=== PATIENT | female | born 1940 | race Caucasian/White ===

== ENCOUNTER → 2017-02-02 16:40 | Outpatient (CLI) | payer MEDICARE ==
[2013-07-14 07:43] VITALS: BMI 27.8
[~2017-02-02 16:40] MED LIST: MULTIPLE VITAMI1 TA1 PO; ZOCOR20 MG PO
== END | disposition home or self-care (01) ==
LOC: D.MAMMO 10:00
DX: Z85.3 Personal history of malignant neoplasm of breast (principal)

== ENCOUNTER → 2017-02-12 07:30 | Outpatient (CLI) | payer MEDICARE ==
[2013-07-14 07:43] VITALS: BMI 27.8
== END | disposition home or self-care (01) ==
LOC: D.US 07:30
DX: R92.8 Other abnormal and inconclusive findings on diagnostic imaging of breast (principal)

== ENCOUNTER 2017-07-12 05:48 | Day surgery (SDC) | payer MEDICARE ==
[2017-07-11 14:08] LABS: BASOPHILS 0.1 % (0-2); EOSINOPHILS 2.6 % (0-7); HEMATOCRIT 38.8 % (36.0-48.0); HEMOGLOBIN 13.1 g/dL (12-16); IMMATURE GRANULOCYTES 0.1 % (0-5); LYMPHOCYTES 21.8 % (15-50); MCH 32.9 pg (26.0-34.0); MCHC 33.8 g/dL (31.0-37.0); MCV 97.5 fL (80.0-100.0); NEUTROPHILS 69.4 % (40-80); PLATELET COUNT 225 10x3/uL (130-400); RBC 3.98 10x6/uL (4.00-5.40); RDW 12.7 % (11.5-14.5); WBC 6.9 10x3/uL (4.8-10.8)
[2017-07-11 14:17] LABS: ANION GAP 11.9 mmol/L (8-16); CALCIUM 8.5 mg/dL (8.5-10.1); CARBON DIOXIDE 28.4 mmol/L (21.0-32.0); CREATININE - SERUM 1.5 mg/dL (0.6-1.3); POTASSIUM - SERUM 3.3 mmol/L (3.5-5.1)
[2017-07-11 14:18] LABS: INR 1.23 (0.85-1.17); PROTIME 15.1 SECONDS (11.6-15.0)
[2017-07-11 14:19] LABS: APTT 37.1 SECONDS (22.8-39.4)
[~2017-07-12] VITALS: Ht 165.1 cm; Wt 72.7 kg
[~2017-07-12 05:48] MED LIST changes: +ALEVE220 MG PO; +CALCIUM 600 +1 EAC3 PO
[2017-07-12 06:35] VITALS: BP 118/70
--- NOTE | 2017-07-12 16:07 | NUR ---
PT NON-VERBAL - WILL NOD HEAD BUT WILL NOT OR CANNOT INTERACT VERBALLY
--- NOTE | 2017-07-12 17:09 | NUR ---
PT OK TO D/C TO FLOOR PER DR LOWERY
[2017-07-12 17:15] VITALS: BP 161/69
[2017-07-12 17:31] VITALS: BP 161/69; Ht 165.1 cm; Wt 72.7 kg
[2017-07-12 21:49] VITALS: BP 138/61
[2017-07-13 01:03] VITALS: BP 145/62
[2017-07-13 05:24] VITALS: BP 84/57
[2017-07-13 07:12] LABS: ANION GAP 12.2 mmol/L (8-16); BASOPHILS 0 % (0-2); CALCIUM 7.9 mg/dL (8.5-10.1); CARBON DIOXIDE 26.9 mmol/L (21.0-32.0); CREATININE - SERUM 1.2 mg/dL (0.6-1.3); EOSINOPHILS 0 % (0-7); HEMATOCRIT 36.3 % (36.0-48.0); HEMOGLOBIN 12.5 g/dL (12-16); IMMATURE GRANULOCYTES 0.2 % (0-5); LYMPHOCYTES 5.7 % (15-50); MCH 33.3 pg (26.0-34.0); MCHC 34.4 g/dL (31.0-37.0); MCV 96.8 fL (80.0-100.0); MEAN PLATELET VOLUME 10.4 fL (7.4-10.4); MONOCYTES 4.4 % (2-11); NEUTROPHILS 89.7 % (40-80); PLATELET COUNT 204 10x3/uL (130-400); POTASSIUM - SERUM 4.1 mmol/L (3.5-5.1); RBC 3.75 10x6/uL (4.00-5.40); RDW 12.6 % (11.5-14.5)
[2017-07-13 08:26] VITALS: BP 114/49
--- NOTE | 2017-07-13 08:39 | NUR ---
AWAKE AND ALERT. ORIENTED X3. NO C/O AT THIS TIME. LUNGS ARE CLEAR BILATERALLY, NO COUGH NOTED. SKIN IS INTACT WITHOUT REDNESS EXCEPT INCISION TO LEFT BREAST WHICH IS DRY AND INTACT. IV TO RIGHT AC IS PATENT WITHOUT REDNESS AT INSERTION SITE. DENIES NEEDS. SCD'S IN PLACE. SITTING UP IN BED EATING BREAKFAST SON AT BEDSIDE.
[2017-07-13] MEDS ORDERED: HYDROCODONE-APA1 TAB PO (09:25)
--- NOTE | 2017-07-13 11:00 | NUR ---
DISCHARGED TO HOME WITH FAMILY [facility]BULATORY. DISCHARGE INSTRUCTIONS GIVEN BOTH VERBALLY AND WRITTEN. ALL QUESTIONS ANSWERED. PATIENT AND SON VERBALIZED UNDERSTANDING OF SAME. INSTRUCTED IN CARE OF AND EMPTYING OF SHILOH. SON USED TO CARING FOR THESE. IV TO RIGHT FOREARM D/C WITH CATHETER INTACT. NEEDED PRESCRIPTIONS GIVEN TO PATIENT.
--- NOTE | 2017-07-17 12:19 | OP ---
PATIENT NAME: ALICIA HO MEDICAL RECORD: [id number] :44 LOCATION:[facility] ADMISSION DATE: SURGEON: SMITH SCHWARTZ MD DATE OF OPERATION: 07/12/2017 PREOPERATIVE DIAGNOSES: 1. Recurrent left breast cancer. 2. Hypercholesterolemia. POSTOPERATIVE DIAGNOSES: 1. Recurrent left breast cancer. 2. Hypercholesterolemia. PROCEDURE: Left modified radical mastectomy. SURGEON: Smith Schwartz MD REPORT OF PROCEDURE: Preoperatively, the patient underwent lymphoscintigraphy, but it did not show any uptake in the patient's left axilla. The patient was taken to the operating room where the patient's left breast and axilla were prepped and draped in sterile fashion. An ovoid incision was made overlying the breast including the patient's nipple areolar complex. Electrocautery was used to dissect through the subcutaneous tissue and we came around the breast and we eventually elevated the breast off of the pectoral muscle. Once the breast tissue was completely excised, it was sent off for permanent specimen. We were able to approach the patient's left axilla. A left axillary lymph node dissection was performed. We took all of the tissue from the chest wall, posteriorly to the latissimus dorsi, superiorly up to the axillary vessels and anteriorly to the pectoral muscles. The long thoracic and thoracodorsal nerves were found and these were protected during the procedure. Once this tissue was removed, it was sent off for permanent specimen. The wound was then irrigated out with sterile water. Care was taken to assure there was no sign of any active bleeding. A 10 flat SHILOH drains were inserted into the wound and laid across the tissues. These were sutured into place with 3-0 nylons. The subcutaneous tissues were then reapproximated with interrupted 3-0 Vicryl and the skin was closed with manda. COMPLICATIONS: None. CONDITION: Stable. ANESTHESIA: General endotracheal. BLOOD LOSS: 50 mL. 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
== END 2017-07-13 13:54 | disposition home or self-care (01) ==
LOC: D.MS 05:48 → D.OPS 05:48 → D.NM 07:30 → D.OPS 07:30 → D.PAN 07:30 → D.MS 17:01 → D.OPS 07-13 13:54
PROVIDERS: Anesthesiology; Surgery
DX: C50.912 Malignant neoplasm of unspecified site of left female breast (principal); E66.9 Obesity, unspecified; Z68.30 Body mass index [BMI] 30.0-30.9, adult; Z01.812 Encounter for preprocedural laboratory examination

== ENCOUNTER → 2020-12-10 10:00 | Outpatient (CLI) | payer OTHER ==
[2017-07-12 17:31] VITALS: BMI 26.6
[~2020-12-10 10:00] MED LIST changes: +HYDROCODONE-APA1 TAB PO
== END | disposition home or self-care (01) ==
LOC: D.US 09:00
PROVIDERS: ATTEND Surgery
DX: R22.2 Localized swelling, mass and lump, trunk (principal); C50.919 Malignant neoplasm of unspecified site of unspecified female breast